=== PATIENT | female | born 1935 | race Caucasian/White ===

== ENCOUNTER → 2016-09-18 | Outpatient (CLI) | payer MEDICARE | LOC: GT 08:00 | PROVIDERS: ATTEND Family Medicine | DX: I50.9 Heart failure, unspecified (principal); I10 Essential (primary) hypertension; I25.9 Chronic ischemic heart disease, unspecified; Z79.899 Other long term (current) drug therapy ==

== ENCOUNTER → 2016-10-23 | Outpatient (CLI) | payer MEDICARE | END | disposition home or self-care (01) | LOC: GT 08:07 | PROVIDERS: ATTEND Family Medicine | DX: I50.9 Heart failure, unspecified (principal); I10 Essential (primary) hypertension; I25.9 Chronic ischemic heart disease, unspecified ==

== ENCOUNTER → 2016-10-30 | Outpatient (CLI) | payer MEDICARE | LOC: GT 08:19 | PROVIDERS: ATTEND Family Medicine | DX: I50.9 Heart failure, unspecified (principal); I10 Essential (primary) hypertension; I25.9 Chronic ischemic heart disease, unspecified; E11.8 Type 2 diabetes mellitus with unspecified complications ==

== ENCOUNTER → 2016-11-20 | Outpatient (CLI) | payer MEDICARE | END | disposition home or self-care (01) | LOC: GT 07:37 | PROVIDERS: ATTEND Family Medicine | DX: I50.9 Heart failure, unspecified (principal) ==

== ENCOUNTER → 2017-01-01 | Outpatient (CLI) | payer MEDICARE | LOC: GT 07:48 | PROVIDERS: ATTEND Family Medicine | DX: E11.8 Type 2 diabetes mellitus with unspecified complications (principal); I25.9 Chronic ischemic heart disease, unspecified; E63.9 Nutritional deficiency, unspecified; I50.9 Heart failure, unspecified; R27.8 Other lack of coordination ==

== ENCOUNTER → 2017-01-09 | Outpatient (CLI) | payer MEDICARE | LOC: GT 09:44 | PROVIDERS: ATTEND Family Medicine | DX: A49.02 Methicillin resistant Staphylococcus aureus infection, unspecified site (principal) ==

== ENCOUNTER → 2017-01-22 | Outpatient (CLI) | payer MEDICARE | END | disposition home or self-care (01) | LOC: GT 08:44 | PROVIDERS: ATTEND Family Medicine | DX: I25.9 Chronic ischemic heart disease, unspecified (principal); I50.9 Heart failure, unspecified | CPT/HCPCS: 36415; 80162; P9603 ==

== ENCOUNTER → 2017-01-24 | Outpatient (CLI) | payer MEDICARE | END | disposition home or self-care (01) | LOC: GT 10:22 | PROVIDERS: ATTEND Family Medicine | DX: N39.0 Urinary tract infection, site not specified (principal) ==

== ENCOUNTER → 2017-03-10 | Outpatient (CLI) | payer MEDICARE | END | disposition home or self-care (01) | LOC: GT 06:16 | PROVIDERS: ATTEND Family Medicine | DX: I50.9 Heart failure, unspecified (principal) ==

== ENCOUNTER → 2017-03-26 | Outpatient (CLI) | payer MEDICARE | LOC: GT 06:21 | PROVIDERS: ATTEND Family Medicine | DX: I25.9 Chronic ischemic heart disease, unspecified (principal); I10 Essential (primary) hypertension; I50.9 Heart failure, unspecified ==

== ENCOUNTER → 2017-04-23 | Outpatient (CLI) | payer MEDICARE | END | disposition home or self-care (01) | LOC: GT 07:35 | PROVIDERS: ATTEND Family Medicine | DX: I25.9 Chronic ischemic heart disease, unspecified (principal); I11.0 Hypertensive heart disease with heart failure; I50.9 Heart failure, unspecified ==

== ENCOUNTER → 2017-05-21 | Outpatient (CLI) | payer MEDICARE | LOC: GT 05:37 | PROVIDERS: ATTEND Family Medicine | DX: I25.9 Chronic ischemic heart disease, unspecified (principal); I50.9 Heart failure, unspecified ==

== ENCOUNTER → 2017-06-27 | Outpatient (CLI) | payer MEDICARE | LOC: GT 06:36 | PROVIDERS: ATTEND Family Medicine | DX: I50.9 Heart failure, unspecified (principal); I25.9 Chronic ischemic heart disease, unspecified ==

== ENCOUNTER → 2017-07-02 | Outpatient (CLI) | payer MEDICARE | END | disposition home or self-care (01) | LOC: GT 07:07 | PROVIDERS: ATTEND Family Medicine | DX: I50.9 Heart failure, unspecified (principal); E11.8 Type 2 diabetes mellitus with unspecified complications; I25.9 Chronic ischemic heart disease, unspecified; I10 Essential (primary) hypertension; R27.8 Other lack of coordination ==

== ENCOUNTER → 2017-07-10 | Outpatient (CLI) | payer MEDICARE | END | disposition home or self-care (01) | LOC: GT 14:59 | PROVIDERS: ATTEND Family Medicine | DX: L02.32 Furuncle of buttock (principal) ==

== ENCOUNTER 2017-07-17 16:25 | Emergency (ER) | payer MEDICARE ==
[2017-07-17 17:33] VITALS: BP 136/57; O2SAT 95
--- NOTE | 2017-07-17 17:40 | ED.PDOC ---
History of Present Illness - General Chief Complaint: Skin/Abrasion/Tear Stated Complaint: abscess Time Seen by Provider: 07/17/17 17:39 Source: patient Exam Limitations: clinical condition - dementia - History of Present Illness Initial Comments: Disha Cordero 82 y/o female seen ER today with drainage on her right buttocks which according to patient had it for 2 years No fever,no chills. Timing/Duration: changing over time, other - see hpi Severity: moderate Location: extremities - right buttocks Improving Factors: nothing Worsening Factors: nothing Associated Symptoms: other - drainage Allergies/Adverse Reactions: Allergies Levofloxacin [From Levaquin] Allergy (Verified 07/17/17 17:04) Sulfa Antibiotics Allergy (Verified 07/17/17 17:04) Home Medications: Ambulatory Orders Acetaminophen [Tylenol] 1 - 2 each PO Q6HRS PRN 05/02/16 Ascorbic Acid [Vitamin C] 500 mg PO BID@0900,1700 05/02/16 Aspirin [Aspirin Childrens] 81 mg PO DAILY@0900 05/02/16 Atorvastatin Calcium [Lipitor] 40 mg PO BEDTIME 05/02/16 Benzonatate 200 mg PO Q6HR PRN 05/02/16 Cranberry (Vaccinium Macrocarp [Cranberry] 450 mg PO TID@0900,1300,1999 Diazepam 2 mg PO BID PRN 05/02/16 Dicyclomine HCl 10 mg PO TID@0900,1300,1700 05/02/16 Furosemide [Lasix] 20 mg PO BID@0900,1200 05/02/16 Loratadine [Claritin] 10 mg PO DAILY PRN 05/02/16 Losartan Potassium 50 mg PO DAILY@0900 05/02/16 Metformin HCl [Metformin HCl ER] 500 mg PO DAILY@0730 05/02/16 Metoprolol Succinate [Metoprolol Succinate ER] 25 mg PO DAILY@0900 05/02/16 Montelukast [Singulair] 10 mg PO DAILY@209905/02/16 Ondansetron [Zofran Odt] 8 mg PO Q6H PRN 05/02/16 Potassium Chloride [Micro-K] 10 meq PO BID@0900,1700 05/02/16 Ranitidine HCl 150 mg PO DAILY@209905/02/16 Temazepam [Restoril] 15 mg PO BEDTIME PRN 05/02/16 Dextrose 50% 25Gm/50Ml Syr [D50 (25gm Syringe)] 25 gm IV PRN PRN #0 syg Digoxin [Lanoxin Tab] 0.125 mg PO DAILY@1200 #0 tab 05/18/16 Glucagon Inj 1 mg SUBCU PRN PRN #0 vial 05/18/16 HYDROcodone 5MG/APAP 325MG [[place] 5/325] 1 - 2 ea PO Q4H PRN #0 tab 05/18/16 Ibuprofen [Motrin] 400 mg PO Q6H PRN #0 tab 05/18/16 Insulin Detemir [Levemir Pen] 20 units SUBCU DAILY #0 pen 05/18/16 Insulin Lispro [Humalog] 0 u SUBCU ACHS #0 pen 05/18/16 Magnesium Hydroxide [Milk Of Magnesia] 30 ml PO BEDTIME PRN #0 ud 05/18/16 Pantoprazole Tablet [Protonix] 40 mg PO ACBK #0 tab 05/18/16 Amoxicillin [Amoxil] 1,000 mg PO BID #40 cap 07/17/17 Review of Systems - Review of Systems Constitutional: States: no symptoms reported EENTM: States: no symptoms reported Respiratory: States: no symptoms reported Cardiology: States: no symptoms reported Genitourinary: States: no symptoms reported Musculoskeletal: States: no symptoms reported Skin: States: see HPI All other Systems: Reviewed and Negative, No Change from Baseline Past Medical History (General) - Patient Medical History Hx Seizures: No Hx Stroke: No Hx Asthma: No Hx of COPD: No Hx Congestive Heart Failure: No Hx Pacemaker: No Hx Hypertension: Yes Hx Diabetes: Yes Hx Gastroesophageal Reflux: Yes Hx MRSA: Yes MRSA Source:: Blood Surgical History: other - hysterectomy,left AKA - Vaccination History Hx Influenza Vaccination: Yes Hx Pneumococcal Vaccination: No - Social History Hx Tobacco Use: No Hx Alcohol Use: No Hx Substance Use: No Hx Physical Abuse: No Hx Emotional Abuse: No - Female History Patient is a Female of Child Bearing Age (10 -59 yrs old): No Family Medical History - Family History Mother Family History: Unknown Living Status: Unknown Physical Exam - Physical Exam General Appearance: Alert, Comfortable, No apparent distress Eyes, Ears, Nose, Throat Exam: normal ENT inspection Neck: non-tender, supple, normal inspection Cardiovascular/Chest: normal peripheral pulses, regular rate, rhythm, systolic murmur - Grade 3/6 systolic murmur Respiratory: chest non-tender, lungs clear, normal breath sounds Gastrointestinal/Abdominal: normal bowel sounds, non tender, soft Back Exam: no CVA tenderness Extremity: other - LEFT AKA Neurologic: alert Skin Exam: warm/dry, normal color Skin Problem Location: other - right buttocks Skin Character: drainage, thickening Progress - Progress Progress: 07/17/17 17:58 Last Vital Signs Temp Pulse 60 07/17/17 16:55 Resp 20 07/17/17 16:55 BP 136/57 07/17/17 16:55 Pulse Ox 95 07/17/17 16:55 Departure - Departure Clinical Impression: Pilonidal sinus Time of Disposition: 17:59 Disposition: Discharge to SNF Departure Forms: ED Discharge - Pt. Copy, Patient Portal Self Enrollment Instructions: Pilonidal Cyst, DI for Pilonidal Cyst Removal Referrals: YANN PARK [Primary Care Provider] - 1-2 Weeks Prescriptions: Amoxicillin [Amoxil] 1,000 mg PO BID #40 cap Home Medications: Ambulatory Orders Acetaminophen [Tylenol] 1 - 2 each PO Q6HRS PRN 05/02/16 Ascorbic Acid [Vitamin C] 500 mg PO BID@0900,1700 05/02/16 Aspirin [Aspirin Childrens] 81 mg PO DAILY@0900 05/02/16 Atorvastatin Calcium [Lipitor] 40 mg PO BEDTIME 05/02/16 Benzonatate 200 mg PO Q6HR PRN 05/02/16 Cranberry (Vaccinium Macrocarp [Cranberry] 450 mg PO TID@0900,1300,2000 Diazepam 2 mg PO BID PRN 05/02/16 Dicyclomine HCl 10 mg PO TID@0900,1300,1700 05/02/16 Furosemide [Lasix] 20 mg PO BID@0900,1200 05/02/16 Loratadine [Claritin] 10 mg PO DAILY PRN 05/02/16 Losartan Potassium 50 mg PO DAILY@0900 05/02/16 Metformin HCl [Metformin HCl ER] 500 mg PO DAILY@0730 05/02/16 Metoprolol Succinate [Metoprolol Succinate ER] 25 mg PO DAILY@0900 05/02/16 Montelukast [Singulair] 10 mg PO DAILY@2100 05/02/16 Ondansetron [Zofran Odt] 8 mg PO Q6H PRN 05/02/16 Potassium Chloride [Micro-K] 10 meq PO BID@0900,1700 05/02/16 Ranitidine HCl 150 mg PO DAILY@2100 05/02/16 Temazepam [Restoril] 15 mg PO BEDTIME PRN 05/02/16 Dextrose 50% 25Gm/50Ml Syr [D50 (25gm Syringe)] 25 gm IV PRN PRN #0 syg Digoxin [Lanoxin Tab] 0.125 mg PO DAILY@1200 #0 tab 05/18/16 Glucagon Inj 1 mg SUBCU PRN PRN #0 vial 05/18/16 HYDROcodone 5MG/APAP 325MG [[place] 5/325] 1 - 2 ea PO Q4H PRN #0 tab 05/18/16 Ibuprofen [Motrin] 400 mg PO Q6H PRN #0 tab 05/18/16 Insulin Detemir [Levemir Pen] 20 units SUBCU DAILY #0 pen 05/18/16 Insulin Lispro [Humalog] 0 u SUBCU ACHS #0 pen 05/18/16 Magnesium Hydroxide [Milk Of Magnesia] 30 ml PO BEDTIME PRN #0 ud 05/18/16 Pantoprazole Tablet [Protonix] 40 mg PO ACBK #0 tab 05/18/16 Amoxicillin [Amoxil] 1,000 mg PO BID #40 cap 07/17/17 Additional Instructions: NEED TO FOLLOW UP WITH DR. KOROMA or SURGEON OF CHOICE FOR evaluation and management of draining pilonidal sinus;[facility]
== END 2017-07-17 19:26 ==
LOC: ER 16:25
DX: L05.92 Pilonidal sinus without abscess (principal); E11.9 Type 2 diabetes mellitus without complications; I10 Essential (primary) hypertension; K21.9 Gastro-esophageal reflux disease without esophagitis; Z79.4 Long term (current) use of insulin; Z79.899 Other long term (current) drug therapy; Z88.2 Allergy status to sulfonamides; Z88.3 Allergy status to other anti-infective agents

== ENCOUNTER → 2017-07-30 | Outpatient (CLI) | payer MEDICARE | END | disposition home or self-care (01) | LOC: GT 07:09 | PROVIDERS: ATTEND Family Medicine | DX: I25.9 Chronic ischemic heart disease, unspecified (principal); I50.9 Heart failure, unspecified | CPT/HCPCS: 36415; 80162; 85025; P9603 ==

== ENCOUNTER 2017-07-31 10:11 | Emergency (ER) | payer MEDICARE ==
[2017-07-31 10:34] VITALS: BP 120/55; TEMP 98.7; O2SAT 100
--- NOTE | 2017-07-31 10:41 | ED.PDOC ---
History of Present Illness - General Chief Complaint: Skin/Abrasion/Tear Stated Complaint: abscess to buttock Time Seen by Provider: 07/31/17 10:36 Source: family Exam Limitations: no limitations - History of Present Illness Initial Comments: Disha Cordero 82 y/o female brought by family to ER to be checked by Dr. Aragon surgeon for her long standing non healing pilonidal sinus drainage,had multiple treatment with antibiotics and local drainage done . Timing/Duration: other - 2 years Severity: moderate Location: extremities - buttocks Improving Factors: cold therapy Worsening Factors: nothing Associated Symptoms: denies symptoms Allergies/Adverse Reactions: Allergies Levofloxacin [From Levaquin] Allergy (Verified 07/17/17 17:04) Sulfa Antibiotics Allergy (Verified 07/17/17 17:04) Home Medications: Ambulatory Orders Acetaminophen [Tylenol] 1 - 2 each PO Q6HRS PRN 05/02/16 Ascorbic Acid [Vitamin C] 500 mg PO BID@0900,1700 05/02/16 Aspirin [Aspirin Childrens] 81 mg PO DAILY@0900 05/02/16 Atorvastatin Calcium [Lipitor] 40 mg PO BEDTIME 05/02/16 Benzonatate 200 mg PO Q6HR PRN 05/02/16 Cranberry (Vaccinium Macrocarp [Cranberry] 450 mg PO TID@0900,1300,1999 Diazepam 2 mg PO BID PRN 05/02/16 Dicyclomine HCl 10 mg PO TID@0900,1300,1700 05/02/16 Furosemide [Lasix] 20 mg PO BID@0900,1200 05/02/16 Loratadine [Claritin] 10 mg PO DAILY PRN 05/02/16 Losartan Potassium 50 mg PO DAILY@0900 05/02/16 Metformin HCl [Metformin HCl ER] 500 mg PO DAILY@0730 05/02/16 Metoprolol Succinate [Metoprolol Succinate ER] 25 mg PO DAILY@0900 05/02/16 Montelukast [Singulair] 10 mg PO DAILY@209905/02/16 Ondansetron [Zofran Odt] 8 mg PO Q6H PRN 05/02/16 Potassium Chloride [Micro-K] 10 meq PO BID@0900,1700 05/02/16 Ranitidine HCl 150 mg PO DAILY@209905/02/16 Temazepam [Restoril] 15 mg PO BEDTIME PRN 05/02/16 Dextrose 50% 25Gm/50Ml Syr [D50 (25gm Syringe)] 25 gm IV PRN PRN #0 syg Digoxin [Lanoxin Tab] 0.125 mg PO DAILY@1200 #0 tab 05/18/16 Glucagon Inj 1 mg SUBCU PRN PRN #0 vial 05/18/16 HYDROcodone 5MG/APAP 325MG [[facility] 5/325] 1 - 2 ea PO Q4H PRN #0 tab 05/18/16 Ibuprofen [Motrin] 400 mg PO Q6H PRN #0 tab 05/18/16 Insulin Detemir [Levemir Pen] 20 units SUBCU DAILY #0 pen 05/18/16 Insulin Lispro [Humalog] 0 u SUBCU ACHS #0 pen 05/18/16 Magnesium Hydroxide [Milk Of Magnesia] 30 ml PO BEDTIME PRN #0 ud 05/18/16 Pantoprazole Tablet [Protonix] 40 mg PO ACBK #0 tab 05/18/16 Amoxicillin [Amoxil] 1,000 mg PO BID #40 cap 07/17/17 Review of Systems - Review of Systems Constitutional: States: no symptoms reported EENTM: States: no symptoms reported Respiratory: States: no symptoms reported Cardiology: States: no symptoms reported Skin: States: see HPI All other Systems: Reviewed and Negative, No Change from Baseline Past Medical History (General) - Patient Medical History Hx Seizures: No Hx Stroke: No Hx Asthma: No Hx of COPD: No Hx Congestive Heart Failure: No Hx Pacemaker: No Hx Hypertension: Yes Hx Diabetes: Yes Hx Gastroesophageal Reflux: Yes Hx MRSA: Yes MRSA Source:: Blood Surgical History: appendectomy, cholecystectomy, other - left AKA - Vaccination History Hx Influenza Vaccination: Yes Hx Pneumococcal Vaccination: No - Social History Hx Tobacco Use: No Hx Alcohol Use: No Hx Substance Use: No Hx Physical Abuse: No Hx Emotional Abuse: No Family Medical History - Family History Mother Family History: Unknown Living Status: Unknown Physical Exam - Physical Exam General Appearance: Alert, No apparent distress Eyes, Ears, Nose, Throat Exam: normal ENT inspection Neck: full range of motion, supple Cardiovascular/Chest: normal peripheral pulses, regular rate, rhythm, no murmur Respiratory: chest non-tender, lungs clear Gastrointestinal/Abdominal: normal bowel sounds, non tender, soft Back Exam: normal inspection, no CVA tenderness Extremity: non-tender, no calf tenderness, other - left AKA Neurologic: alert Skin Exam: warm/dry, normal color Skin Problem Location: other - buttocks darining pilonidal sinus Skin Character: thickening, other - chronic induration Lymphatic: no adenopathy Progress - Progress Progress: 07/31/17 10:44 Last Vital Signs Temp 98.7 F 07/31/17 10:30 Pulse 67 07/31/17 10:30 Resp 20 07/31/17 10:30 BP 120/55 07/31/17 10:30 Pulse Ox 100 07/31/17 10:30 07/31/17 12:[address] Aragon surgeon-please refer to his notes Departure - Departure Clinical Impression: Abscess of sacrum Time of Disposition: 12:24 Disposition: Discharge to SNF Condition: Fair Departure Forms: ED Discharge - Pt. Copy, Patient Portal Self Enrollment Instructions: DI for Abrasion Referrals: Blane Aragon MD [Active Staff] - 2 weeks (will contact fl for fu appt) YANN PARK [Primary Care Provider] - 1-2 Weeks Home Medications: Ambulatory Orders Acetaminophen [Tylenol] 1 - 2 each PO Q6HRS PRN 05/02/16 Ascorbic Acid [Vitamin C] 500 mg PO BID@0900,1700 05/02/16 Aspirin [Aspirin Childrens] 81 mg PO DAILY@0900 05/02/16 Atorvastatin Calcium [Lipitor] 40 mg PO BEDTIME 05/02/16 Benzonatate 200 mg PO Q6HR PRN 05/02/16 Cranberry (Vaccinium Macrocarp [Cranberry] 450 mg PO TID@0900,1300,2000 Diazepam 2 mg PO BID PRN 05/02/16 Dicyclomine HCl 10 mg PO TID@0900,1300,1700 05/02/16 Furosemide [Lasix] 20 mg PO BID@0900,1200 05/02/16 Loratadine [Claritin] 10 mg PO DAILY PRN 05/02/16 Losartan Potassium 50 mg PO DAILY@0900 05/02/16 Metformin HCl [Metformin HCl ER] 500 mg PO DAILY@0730 05/02/16 Metoprolol Succinate [Metoprolol Succinate ER] 25 mg PO DAILY@0900 05/02/16 Montelukast [Singulair] 10 mg PO DAILY@2100 05/02/16 Ondansetron [Zofran Odt] 8 mg PO Q6H PRN 05/02/16 Potassium Chloride [Micro-K] 10 meq PO BID@0900,1700 05/02/16 Ranitidine HCl 150 mg PO DAILY@2100 05/02/16 Temazepam [Restoril] 15 mg PO BEDTIME PRN 05/02/16 Dextrose 50% 25Gm/50Ml Syr [D50 (25gm Syringe)] 25 gm IV PRN PRN #0 syg Digoxin [Lanoxin Tab] 0.125 mg PO DAILY@1200 #0 tab 05/18/16 Glucagon Inj 1 mg SUBCU PRN PRN #0 vial 05/18/16 HYDROcodone 5MG/APAP 325MG [[facility] 5/325] 1 - 2 ea PO Q4H PRN #0 tab 05/18/16 Ibuprofen [Motrin] 400 mg PO Q6H PRN #0 tab 05/18/16 Insulin Detemir [Levemir Pen] 20 units SUBCU DAILY #0 pen 05/18/16 Insulin Lispro [Humalog] 0 u SUBCU ACHS #0 pen 05/18/16 Magnesium Hydroxide [Milk Of Magnesia] 30 ml PO BEDTIME PRN #0 ud 05/18/16 Pantoprazole Tablet [Protonix] 40 mg PO ACBK #0 tab 05/18/16 Amoxicillin [Amoxil] 1,000 mg PO BID #40 cap 07/17/17 Additional Instructions: To follow up with Dr. Aragon
[2017-07-31] MEDS ORDERED: POVIDONE IODINE 10 % 15 ML UD TOP ONE (11:40)
[2017-07-31] MEDS ORDERED: LIDOCAINE 1% 10 ML VIAL INJ ONE (11:40)
--- NOTE | 2017-07-31 13:07 | CONS ---
DATE OF CONSULTATION: 07/31/17 HISTORY OF PRESENT ILLNESS: The patient is an 82-year-old [facility] patient who I have known in the distant past for an amputation. Today, she is complaining of a draining lesion on her buttocks for sometime. She denies fever or chills. She has been on antibiotics, but at this time I am uncertain of the nature of the antibiotic. She complains of pain and draining. She denies previous surgery or abscess in this area. The patient is seen today with her granddaughter. PAST MEDICAL HISTORY: Her past medical history is quite significant, but is not significant in reference to this problem. ALLERGIES: POSSIBLY ALLERGIC TO PENICILLIN, BUT SHE IS SPECIFICALLY NOT ALLERGIC TO BETADINE OR LIDOCAINE. FAMILY HISTORY: Noncontributory. PHYSICAL EXAMINATION: GENERAL: The patient is awake, alert, cooperative, in no minimal distress. VITAL SIGNS: The patient is currently afebrile, normotensive. Over her buttocks to the left side, there is a draining sinus with seropurulent drainage. There was mild surrounding erythema, no significant warmth and no foul odor. ASSESSMENT: 1. Either a pressure abscess or pilonidal cyst, uncertain in this position. PLAN: Under local anesthesia, we will open the wound to obtain a better culture and then pack it. We will then give further recommendations afterwards and orders to the [facility]. #[id number] [facility]
--- NOTE | 2017-07-31 13:13 | OP ---
DATE OF PROCEDURE: 07/31/17 PREOPERATIVE DIAGNOSIS: 1. Abscess on the sacral area - pilonidal cyst abscess versus pressure wound, status post spontaneous drainage. POSTOPERATIVE DIAGNOSIS: 1. Abscess on the sacral area - pilonidal cyst abscess versus pressure wound, status post spontaneous drainage. PROCEDURE: 1. Incision and drainage of abscess on the sacrum. SURGEON: lBane Aragon MD. SHOP DIRECTOR: None. ANESTHESIA: Local infiltration of 1% lidocaine. INDICATION: The patient is an 82-year-old female with a draining sinus that is quite tender on her backside. It has been present for some time. She has been oral antibiotic by her primary care physician and is afebrile at the time of this procedure. FINDINGS: The abscess cavity extended approximately 5 cm in superior, inferior , cephalad and caudad directions, yet did not involve bone. There was a minimal amount of purulent drainage. There was no foul odor. PROCEDURE: After the patient was placed in right side up lateral decubitus position, the backside was painted with Betadine. Local infiltration of anesthesia was obtained with 1% lidocaine. Using a 15 blade, the incision was extended superior. A culture was then taken inside and then it was examined and noted to extent inferiorly, so local infiltration of anesthesia was obtained in that direction and the incision was extended in that direction for a total of 3.5 or so cm for the total incision. It was then irrigated with Betadine and saline, packed with sterile cotton gauze and sterile dressing was applied. Estimated blood loss was approximately 25 mL. The patient tolerated the procedure well. She will be discharged from the Emergency Room back to the [facility] and we will consider changing antibiotic therapy based on culture results and followup with her at some time. #[id number] [facility]
== END 2017-07-31 12:17 ==
LOC: ER 10:11
DX: L02.31 Cutaneous abscess of buttock (principal); I10 Essential (primary) hypertension; E11.9 Type 2 diabetes mellitus without complications; Z89.612 Acquired absence of left leg above knee; Z79.899 Other long term (current) drug therapy

== ENCOUNTER → 2017-08-27 | Outpatient (CLI) | payer MEDICARE | LOC: GT 06:28 | PROVIDERS: ATTEND Family Medicine | DX: I50.9 Heart failure, unspecified (principal); I10 Essential (primary) hypertension; I25.9 Chronic ischemic heart disease, unspecified | CPT/HCPCS: 36415; 80162; P9603 ==

== ENCOUNTER → 2017-09-02 | Outpatient (CLI) | payer MEDICARE, MEDICAID | LOC: GT 10:48 | PROVIDERS: ATTEND Family Medicine | DX: N39.0 Urinary tract infection, site not specified (principal) ==

== ENCOUNTER → 2017-09-17 | Outpatient (CLI) | payer MEDICARE, MEDICAID | LOC: GT 07:42 | PROVIDERS: ATTEND Family Medicine | DX: E78.5 Hyperlipidemia, unspecified (principal); E63.9 Nutritional deficiency, unspecified; Z51.81 Encounter for therapeutic drug level monitoring | CPT/HCPCS: 36415; 85025; P9603 ==

== ENCOUNTER → 2017-09-24 | Outpatient (CLI) | payer MEDICARE, MEDICAID | LOC: GT 07:49 | PROVIDERS: ATTEND Family Medicine | DX: E11.8 Type 2 diabetes mellitus with unspecified complications (principal); I50.9 Heart failure, unspecified; I10 Essential (primary) hypertension; I25.9 Chronic ischemic heart disease, unspecified; E78.5 Hyperlipidemia, unspecified; E63.9 Nutritional deficiency, unspecified; E11.9 Type 2 diabetes mellitus without complications ==

== ENCOUNTER → 2017-10-22 | Outpatient (CLI) | payer MEDICARE, MEDICAID | END | disposition home or self-care (01) | LOC: GT 06:07 | PROVIDERS: ATTEND Family Medicine | DX: I50.9 Heart failure, unspecified (principal); E11.8 Type 2 diabetes mellitus with unspecified complications; I11.0 Hypertensive heart disease with heart failure; R78.5 Finding of other psychotropic drug in blood; I25.9 Chronic ischemic heart disease, unspecified; E63.9 Nutritional deficiency, unspecified; E11.9 Type 2 diabetes mellitus without complications | CPT/HCPCS: 36415; 80162; P9603 ==

== ENCOUNTER → 2017-10-29 | Outpatient (CLI) | payer MEDICARE, MEDICAID | LOC: GT 07:39 | PROVIDERS: ATTEND Family Medicine | DX: E11.8 Type 2 diabetes mellitus with unspecified complications (principal); I10 Essential (primary) hypertension; I50.9 Heart failure, unspecified; I25.9 Chronic ischemic heart disease, unspecified; E78.5 Hyperlipidemia, unspecified; E63.9 Nutritional deficiency, unspecified; N39.0 Urinary tract infection, site not specified ==

== ENCOUNTER → 2017-11-07 | Outpatient (CLI) | payer MEDICARE, MEDICAID | LOC: GT 07:20 | PROVIDERS: ATTEND Family Medicine | DX: I25.9 Chronic ischemic heart disease, unspecified (principal); I50.9 Heart failure, unspecified; Z79.899 Other long term (current) drug therapy | CPT/HCPCS: 36415; 80162; P9603 ==

== ENCOUNTER → 2017-11-19 | Outpatient (CLI) | payer MEDICARE, MEDICAID | LOC: GT 06:40 | PROVIDERS: ATTEND Family Medicine | DX: N39.0 Urinary tract infection, site not specified (principal) ==

== ENCOUNTER → 2017-11-21 | Outpatient (CLI) | payer MEDICARE, MEDICAID | LOC: GT 07:25 | PROVIDERS: ATTEND Family Medicine | DX: I50.9 Heart failure, unspecified (principal); E63.9 Nutritional deficiency, unspecified; E78.5 Hyperlipidemia, unspecified; I25.9 Chronic ischemic heart disease, unspecified; I10 Essential (primary) hypertension; E11.8 Type 2 diabetes mellitus with unspecified complications ==

== ENCOUNTER → 2018-07-30 | Outpatient (CLI) | payer OTHER | LOC: GT 06:15 | PROVIDERS: ATTEND Family Medicine | DX: N39.0 Urinary tract infection, site not specified (principal) ==

== ENCOUNTER → 2018-09-17 | Outpatient (CLI) | payer MEDICARE | LOC: GT 21:11 | PROVIDERS: ATTEND Family Medicine | DX: N39.0 Urinary tract infection, site not specified (principal) ==

== ENCOUNTER → 2018-10-12 | Outpatient (CLI) | payer MEDICARE, MEDICAID | LOC: GOCC 14:29 | PROVIDERS: ATTEND Family Medicine | DX: N39.0 Urinary tract infection, site not specified (principal) ==

== ENCOUNTER 2018-10-26 17:24 | Inpatient (IN) | payer MEDICARE, MEDICAID ==
[2018-10-26] MEDS ORDERED: SODIUM CHLORIDE 0.9% 500ML 500 ML IVS ONE (18:15)
--- NOTE | 2018-10-26 18:21 | ED.PDOC ---
History of Present Illness - General Chief Complaint: Problem Stated Complaint: intractable uti Time Seen by Provider: 10/26/18 17:52 Source: other - Hospice nurse Exam Limitations: clinical condition - Dementia - History of Present Illness Initial Comments: Pt has been treated for persistant UTI without improvement. Latest sensitivity shows Gentamicin and sulfa should work, but pt is allergic to Sulfa. Pt is a Hospice client, but their doctor thought admission with IV gentamicin would get the UTI under control. Pt has been more confused and agitated since the infecti on was found Timing/Duration: constant Quality: moderate Onset Location: unknown Radiation: none Activites at Onset: none Prior abdominal problems: none Sexual intercourse history: not active Improving Factors: nothing Worsening Factors: nothing Associated Symptoms: denies symptoms Allergies/Adverse Reactions: Allergies Levofloxacin [From Levaquin] Allergy (Verified 07/17/17 17:04) Sulfa Antibiotics Allergy (Verified 07/17/17 17:04) Home Medications: Ambulatory Orders Ascorbic Acid [Vitamin C] 500 mg PO BID@0900,1700 05/02/16 Atorvastatin Calcium [Lipitor] 40 mg PO BEDTIME 05/02/16 Benzonatate 200 mg PO Q6HR PRN 05/02/16 Cranberry (Vaccinium Macrocarp [Cranberry] 450 mg PO TID@0900,1300,2000 05/02/16 Dicyclomine HCl 10 mg PO TID@0900,1300,1700 05/02/16 Furosemide [Lasix] 20 mg PO BID@0900,1200 05/02/16 Losartan Potassium 50 mg PO DAILY@0900 05/02/16 Metformin HCl [Metformin HCl ER] 500 mg PO DAILY@0730 05/02/16 Metoprolol Succinate [Metoprolol Succinate ER] 25 mg PO DAILY@0900 05/02/16 Montelukast [Singulair] 10 mg PO DAILY@2100 05/02/16 Potassium Chloride [Micro-K] 10 meq PO BID@0900,1700 05/02/16 Digoxin [Lanoxin Tab] 0.125 mg PO DAILY@1200 #0 tab 05/18/16 Ibuprofen [Motrin] 400 mg PO Q6H PRN #0 tab 05/18/16 Magnesium Hydroxide [Milk Of Magnesia] 30 ml PO BEDTIME PRN #0 ud 05/18/16 Buspirone HCl 15 mg PO BID 10/26/18 HYDROcodone 10MG/APAP 325MG [[place] 10/325] 1 tab PO BID 10/26/18 LORazepam [Ativan] 1 mg PO TID 10/26/18 Megestrol Acetate (Appetite) [Megace Es] 400 mg PO DAILY 10/26/18 Nitrofurantoin Macrocrystal [Nitrofurantoin Macrocryst] 100 mg PO DAILY 10/26/18 Promethazine Tab [Phenergan Tablet] 25 mg PO Q6HR PRN 10/26/18 Review of Systems - Review of Systems Unable to Obtain Due To: dementia Past Medical History (General) - Patient Medical History Hx Seizures: No Hx Stroke: No Hx Asthma: No Hx of COPD: No Hx Congestive Heart Failure: No Hx Pacemaker: No Hx Hypertension: Yes Hx Diabetes: Yes Hx Gastroesophageal Reflux: Yes Hx MRSA: Yes MRSA Source:: Blood Surgical History: other - Vaccination History Hx Tetanus, Diphtheria Vaccination: No Hx Influenza Vaccination: Yes Hx Pneumococcal Vaccination: Yes - Social History Hx Tobacco Use: No Hx Alcohol Use: No Hx Substance Use: No Hx Physical Abuse: No Hx Emotional Abuse: No - Activities of Daily Living Shelter/Assisted Living (if applicable):: [facility] ([facility] applicable):: [facility] Family Medical History - Family History Mother Family History: Unknown Living Status: Unknown Physical Exam - Physical Exam General Appearance: Alert, Restless Eyes, Ears, Nose, Throat Exam: PERRL/EOMI, other - dry mucosa Cardiovascular/Respiratory: regular rate, rhythm, normal breath sounds, no respiratory distress Gastrointestinal/Abdominal: normal bowel sounds, non tender, soft Extremity: normal range of motion, non-tender, other - S/P BKA on L Neurologic: alert Skin Exam: normal color, warm/dry Departure - Departure Clinical Impression: Dehydration, Acute kidney injury Urinary tract infection Qualifiers: Urinary tract infection type: site unspecified Hematuria presence: without hematuria Qualified Code(s): N39.0 - Urinary tract infection, site not specified Disposition: Admit Patient Condition: Fair Departure Forms: ED Discharge - Pt. Copy, Patient Portal Self Enrollment Referrals: YANN PARK [Primary Care Provider] - 1-2 Weeks Home Medications: Ambulatory Orders Ascorbic Acid [Vitamin C] 500 mg PO BID@0900,1700 05/02/16 Atorvastatin Calcium [Lipitor] 40 mg PO BEDTIME 05/02/16 Benzonatate 200 mg PO Q6HR PRN 05/02/16 Cranberry (Vaccinium Macrocarp [Cranberry] 450 mg PO TID@0900,1300,2000 05/02/16 Dicyclomine HCl 10 mg PO TID@0900,1300,1700 05/02/16 Furosemide [Lasix] 20 mg PO BID@0900,1200 05/02/16 Losartan Potassium 50 mg PO DAILY@0900 05/02/16 Metformin HCl [Metformin HCl ER] 500 mg PO DAILY@0730 05/02/16 Metoprolol Succinate [Metoprolol Succinate ER] 25 mg PO DAILY@0900 05/02/16 Montelukast [Singulair] 10 mg PO DAILY@2100 05/02/16 Potassium Chloride [Micro-K] 10 meq PO BID@0900,1700 05/02/16 Digoxin [Lanoxin Tab] 0.125 mg PO DAILY@1200 #0 tab 05/18/16 Ibuprofen [Motrin] 400 mg PO Q6H PRN #0 tab 05/18/16 Magnesium Hydroxide [Milk Of Magnesia] 30 ml PO BEDTIME PRN #0 ud 05/18/16 Buspirone HCl 15 mg PO BID 10/26/18 HYDROcodone 10MG/APAP 325MG [[facility] 10/325] 1 tab PO BID 10/26/18 LORazepam [Ativan] 1 mg PO TID 10/26/18 Megestrol Acetate (Appetite) [Megace Es] 400 mg PO DAILY 10/26/18 Nitrofurantoin Macrocrystal [Nitrofurantoin Macrocryst] 100 mg PO DAILY 10/26/18 Promethazine Tab [Phenergan Tablet] 25 mg PO Q6HR PRN 10/26/18 Decision To Admit - Decistion To Admit Decision to Admit Reason: Admit from ER Decision to Admit Date: 10/26/18 Decision to Admit Time: 20:13
--- NOTE | 2018-10-26 21:29 | HP ---
SUPERVISING PHYSICIAN: Ben Sierra MD CHIEF COMPLAINT: Intractable urinary tract infection with multidrug resistant organism and multiple allergies. HISTORY OF PRESENT ILLNESS: Ms. Cordero is an 83-year-old, female patient who is on hospice care with [facility] for endstage dementia. Her primary care physician, Dr. Hall, has been treating her for a urinary tract infection that has not improved with outpatient management as a recent urine culture and sensitivity showed a multidrug resistant Morganella morganii with the patient being allergic to Bactrim and levofloxacin with it being sensitive to gentamicin as the only antibiotic she is not allergic as well Zoysn. She was brought to the Emergency Department at the request of Dr. Linares in efforts to provide further treatment of her urinary tract infection given the only means of treatment is either IM injections or parenteral antibiotic with gentamicin. The patient has become more confused and agitated since the urinary tract infection was found and has not responded to treatment. She is now going to be placed in acute care for initiation of fluids for dehydration as her laboratory studies showed creatinine elevated at 1.98 and her normal creatinine after review of medical records is around 0.8 to 1. She will be started on gentamicin per pharmacy protocol. She was admitted in stable condition. PAST MEDICAL HISTORY: 1. Endstage dementia on hospice care with [facility]. 2. Hypertension. 3. Anxiety disorder. 4. Chronic ischemic heart disease. 5. 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 6. Hyperlipidemia. 7. Chronic sinusitis. 8. Gastroesophageal reflux disease. 9. Irritable bowel syndrome. 10. Insomnia. PAST SURGICAL HISTORY: Limited due to the patient being unable to provide any significant history and family not present at time of interview, but listed on previous medical records shows: 1. Cholecystectomy. 2. Tonsillectomy and adenoidectomy. 3. Hysterectomy. 4. Left total knee arthroplasty. 5. Ykrop-[id number] amputation, left. HOME MEDICATIONS: Please refer to the list in the electronic medical record for nursing review of MAR from hospice. ALLERGIES: LEVOFLOXACIN, SULFA ANTIBIOTICS. FAMILY HISTORY: Unremarkable and noncontributory. SOCIAL HISTORY: She is currently on hospice care and resides at [facility]. 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 She denies ever smoking or drinking. REVIEW OF SYSTEMS: Unable to obtain due to the patient's state of dementia. PHYSICAL EXAMINATION: VITAL SIGNS: Temperature 98.2. Pulse 87. Blood pressure 116/75. Respirations 20. Oxygen saturation 99% on room air. GENERAL: The patient is resting comfortably, appears to be in no acute distress. She is a little bit restless. HEENT: Tympanic membranes clear bilaterally. Oropharynx is pink with dry mucous membranes without any lesions. NECK: Supple, nontender with full range of motion. No jugular venous distention noted. RESPIRATORY: Lungs clear to auscultation bilaterally without any rhonchi, wheezes, or rales. CARDIOVASCULAR: Regular rate and rhythm without any appreciable murmurs, gallops, or rubs. ABDOMEN: Soft, nontender. Positive bowel sounds. EXTREMITIES: Status post [id number] amputation on the left. No edema of other extremities. NEUROLOGIC: The patient is alert, but confused. SKIN: Warm, pink and dry with no lesions or rashes. ASSESSMENT: 1. Multidrug resistant urinary tract infection secondary to Morganella morganii and sensitive to Zosyn and gentamicin with the patient having allergy to levofloxacin and sulfa antibiotics. 2. Endstage dementia, currently on hospice care under [facility]. 3. Acute kidney injury, likely due to prerenal azotemia from dehydration. 4. Type 2 diabetes mellitus. 5. Hypertension. 6. Anxiety disorder. 7. History of chronic ischemic heart disease. 8. Hyperlipidemia. 9. History of chronic sinusitis. 10. Chronic gastroesophageal reflux disease without mention of esophagitis. 11. Irritable bowel syndrome. PLAN: The patient is going to be admitted to Acute Care for initiation of IV antibiotics to include gentamicin. Given that she could go home after a course of parenteral antibiotic on possibly IM gentamicin versus Zosyn and given her kidney function, at this point, I feel like she will have an easier time with gentamicin. We will also start her on some IV fluids in efforts to correct her renal dysfunction. She will be on DVT prophylaxis per protocol. She will be on insulin sliding scale per protocol. We will resume her home medications once those have been updated and verified. We will anticipate her length of stay to be at least 2 to 3 days. She will be on gentamicin per pharmacy protocol. Tonight I will start her on 60 mg IV q.8h. and address additional dosing in the morning based on her repeat kidney function on BMP. Once she has had at least 48 to 72 hours of initial treatment, hopefully she could be transitioned to outpatient IM treatment. Until that point, we will continue to monitor and treat as needed. [facility][id number] [facility]
[2018-10-26] MEDS ORDERED: SODIUM CHLORIDE 0.9% 100ML 100 ML IVPB ONE (22:38)
[2018-10-26] MEDS ORDERED: GENTAMICIN SULFATE INJ 80 MG/2 ML VIAL ONE (22:38)
[2018-10-26] MEDS ORDERED: SODIUM CHLORIDE 0.9% (FLUSH) 10 ML SYG IV PRN (22:47)
[2018-10-26] MEDS ORDERED: DEXTROSE 50% 25 GM/50 ML SYG IV PRN (22:47)
[2018-10-26] MEDS ORDERED: GLUCAGON INJ 1 MG VIAL SUBCU PRN (22:47)
[2018-10-26] MEDS ORDERED: MAGNESIUM HYDROXIDE 30 ML UD PO PRN (22:47)
[2018-10-26] MEDS ORDERED: ACETAMINOPHEN 325 MG TAB PO PRN (22:47)
[2018-10-26] MEDS ORDERED: ALUM & MAG HYDROX-SIMETHICONE 30 ML UD PO PRN (22:47)
[2018-10-26] MEDS: KCL 20MEQ/0.45% NS 1,000 ML IVS PRN (22:48)
[2018-10-26] MEDS: IV SET AND CAP CHANGE INJ INJ SCH (22:53)
[2018-10-26] MEDS ORDERED: SODIUM CHLORIDE 0.9% IVPB ONE (23:00)
[2018-10-26] MEDS ORDERED: GENTAMICIN SULFATE IVPB ONE (23:00)
[2018-10-26] MEDS ORDERED: BENZONATATE PERLES 100 MG CAP PO PRN (23:24)
[2018-10-26] MEDS ORDERED: PROMETHAZINE HCL 25 MG TAB PO PRN (23:24)
[2018-10-26] MEDS: LORazepam 1 MG TAB PO SCH (23:31)
[2018-10-26] MEDS: HYDROcodone 10MG/APAP 325MG 1 EA TAB PO SCH (23:31)
[2018-10-27] MEDS: INSULIN LISPRO 100 UNITS/ML PEN SUBCU SCH ×4 (07:22→20:54)
[2018-10-27] MEDS ORDERED: metFORMIN XR 500 MG TAB.ER.24 PO SCH (07:30)
[2018-10-27] MEDS ORDERED: DICYCLOMINE HCL 20 MG TAB ONE (08:40)
[2018-10-27] MEDS ORDERED: LOSARTAN POTASSIUM 25 MG TAB ONE (08:41)
[2018-10-27] MEDS ORDERED: busPIRone HCL 5 MG TAB ONE (08:41)
[2018-10-27] MEDS: DICYCLOMINE HCL 20 MG TAB PO SCH ×3 (09:10→17:40)
[2018-10-27] MEDS: LOSARTAN POTASSIUM 25 MG TAB PO SCH (09:10)
[2018-10-27] MEDS: busPIRone HCL 5 MG TAB PO SCH ×2 (09:10→20:46)
[2018-10-27] MEDS: LORazepam 1 MG TAB PO SCH ×3 (09:11→20:47)
[2018-10-27] MEDS: metFORMIN XR 500 MG TAB.ER.24 PO SCH ×2 (09:11→20:47)
[2018-10-27] MEDS: METOPROLOL SUCCINATE XL 25 MG TAB PO SCH (09:11)
[2018-10-27] MEDS: HYDROcodone 10MG/APAP 325MG 1 EA TAB PO SCH ×2 (09:12→20:46)
[2018-10-27] MEDS: MEGESTROL ACETATE SUSP 400 MG/10 ML UD PO SCH (09:18)
[2018-10-27] MEDS ORDERED: SODIUM CHLORIDE 0.9% IVPB SCH (10:00)
[2018-10-27] MEDS ORDERED: GENTAMICIN SULFATE IVPB SCH (10:00)
[2018-10-27] MEDS ORDERED: GENTAMICIN PER PHARMACY IVPB SCH (10:00)
[2018-10-27] MEDS ORDERED: GENTAMICIN SULFATE INJ 80 MG/2 ML VIAL ONE (10:26)
[2018-10-27] MEDS ORDERED: SODIUM CHLORIDE 0.9% 100ML 100 ML IVPB ONE (10:27)
[2018-10-27] MEDS ORDERED: DIGOXIN 0.125 MG TAB PO SCH (12:00)
[2018-10-27] MEDS: DIGOXIN 0.125 MG TAB PO SCH (12:22)
[2018-10-27] MEDS: KCL 20MEQ/0.45% NS 1,000 ML IVS PRN (13:51)
[2018-10-27] MEDS: ATORVASTATIN 20 MG TAB PO SCH (20:47)
[2018-10-27] MEDS: MONTELUKAST 10 MG TAB PO SCH (20:47)
--- NOTE | 2018-10-27 22:20 | PN ---
DATE: 10/27/18 SUPERVISING PHYSICIAN: Ben Sierra M.D. SUBJECTIVE: The patient is still fairly lethargic and confused. She is resting comfortably. She was started on Gentamicin last night and had good response to the fluids. OBJECTIVE: VITAL SIGNS: Temperature 98.2, pulse 87, blood pressure 116/75, respirations 20, satting 99% on room air. CHEST: Lungs are clear to auscultation bilaterally. HEART: Regular rate and rhythm. ABDOMEN: Soft, non- tender. Positive bowel sounds. EXTREMITIES: Left [id number]-[id number] amputation. All other extremities are without edema. NEUROLOGIC: She is confused, but pleasant. LABORATORY: Creatinine is down to 1.38, BUN 39. Electrolytes showing normal sodium and potassium chloride. Blood sugars range between 132 to 189, calcium 8.2. MICROBIOLOGY: Urine culture prior to admission again showed Morganella that was sensitive to Gentamicin and resistant to all other oral antibiotics other than the ones that she is allergic to which includes Bactrim and Levaquin. ASSESSMENT: 1. Multidrug resistant urinary tract infection secondary to Morganella morganii and sensitive to Zosyn and gentamicin with the patient having allergy to levofloxacin and sulfa antibiotics. 2. Endstage dementia, currently on hospice care under [facility] 3. Acute kidney injury, likely due to prerenal azotemia from dehydration. 4. Type 2 diabetes mellitus. 5. Hypertension. 6. Anxiety disorder. 7. History of chronic ischemic heart disease. 8. Hyperlipidemia. 9. History of chronic sinusitis. 10. Chronic gastroesophageal reflux disease without mention of esophagitis. 11. Irritable bowel syndrome. PLAN: Will continue with IV coverage with Gentamicin as I think this is still more appropriate than Zosyn given her renal function and age and current urinary tract infection. She is tolerating current dosing which is by Pharmacy protocol. Will continue to follow labs as needed and at this point continue with IV fluids to help with some of the dehydration which shows to be improving slightly. Again will anticipate at least another 48 hours. Hopefully after that point she can transition to some IM dosage for outpatient management. Until then will continue to monitor and treat as needed. #[id number] [facility]
[2018-10-28] MEDS: KCL 20MEQ/0.45% NS 1,000 ML IVS PRN (01:40)
[2018-10-28] MEDS: INSULIN LISPRO 100 UNITS/ML PEN SUBCU SCH ×4 (07:32→21:01)
[2018-10-28] MEDS: busPIRone HCL 5 MG TAB PO SCH ×2 (09:45→20:36)
[2018-10-28] MEDS: METOPROLOL SUCCINATE XL 25 MG TAB PO SCH (09:45)
[2018-10-28] MEDS: DICYCLOMINE HCL 20 MG TAB PO SCH ×3 (09:46→17:24)
[2018-10-28] MEDS: metFORMIN XR 500 MG TAB.ER.24 PO SCH ×2 (09:46→20:37)
[2018-10-28] MEDS: LORazepam 1 MG TAB PO SCH ×3 (09:46→20:37)
[2018-10-28] MEDS: MEGESTROL ACETATE SUSP 400 MG/10 ML UD PO SCH (09:46)
[2018-10-28] MEDS: HYDROcodone 10MG/APAP 325MG 1 EA TAB PO SCH ×2 (09:48→20:36)
[2018-10-28] MEDS: LOSARTAN POTASSIUM 25 MG TAB PO SCH (09:48)
[2018-10-28] MEDS: MONTELUKAST 10 MG TAB PO SCH (20:37)
[2018-10-28] MEDS: ENOXAPARIN SODIUM 30 MG/0.3 ML SYG SUBCU SCH (20:37)
[2018-10-28] MEDS: ATORVASTATIN 20 MG TAB PO SCH (20:37)
--- NOTE | 2018-10-28 20:37 | PN ---
DATE: 10/28/18 SUPERVISING PHYSICIAN: Ben Sierra M.D. SUBJECTIVE: The patient is back to her baseline mental status. She is very verbal, confused but very pleasantly confused. OBJECTIVE: VITAL SIGNS: Temperature 98.6, pulse 81, blood pressure 138/84, respirations 20, satting 97% on room air. Weight is 55.3 kg. CHEST: Lungs are clear to auscultation. HEART: Regular rate and rhythm. ABDOMEN: Soft, non- tender. Positive bowel sounds. NEUROLOGIC: She is confused and back to her baseline level of dementia with no other neurological deficits noted. LABORATORY: Chemistry shows creatinine 1.28, BUN 30 with blood sugars between 98 and 175. She has had 1 Gentamicin level that was 13.3. MICROBIOLOGY: As noted on previous note. Urine culture prior to admission again showed Morganella that was sensitive to Gentamicin and resistant to all other oral antibiotics other than the ones that she is allergic to which includes Bactrim and Levaquin. ASSESSMENT: 1. Multidrug resistant urinary tract infection secondary to Morganella morganii and sensitive to Zosyn and gentamicin with the patient having allergy to levofloxacin and sulfa antibiotics. 2. Endstage dementia, currently on hospice care under [facility]. 3. Acute kidney injury, likely due to prerenal azotemia from dehydration. 4. Type 2 diabetes mellitus. 5. Hypertension. 6. Anxiety disorder. 7. History of chronic ischemic heart disease. 8. Hyperlipidemia. 9. History of chronic sinusitis. 10. Chronic gastroesophageal reflux disease without mention of esophagitis. 11. Irritable bowel syndrome. PLAN: Will continue with Gentamicin and follow her levels closely with anticipation on being discharged with anywhere from every 24 to 48 hours IM dosing. Will continue with Gentamicin per Pharmacy protocol. Will follow her levels, the Gentamicin serum levels. Hopefully will be able to discharge the patient in the next 24 to 48 hours. Until then, continue to monitor and treat as needed. #[id number] [facility]
[2018-10-28] MEDS ORDERED: ENOXAPARIN SODIUM 40 MG/0.4 ML SYG SUBCU SCH (23:00)
[2018-10-29] MEDS: KCL 20MEQ/0.45% NS 1,000 ML IVS PRN ×2 (01:55→19:00)
[2018-10-29] MEDS: INSULIN LISPRO 100 UNITS/ML PEN SUBCU SCH ×4 (07:09→21:17)
[2018-10-29] MEDS: MEGESTROL ACETATE SUSP 400 MG/10 ML UD PO SCH (09:12)
[2018-10-29] MEDS: LOSARTAN POTASSIUM 25 MG TAB PO SCH (09:12)
[2018-10-29] MEDS: DIGOXIN 0.125 MG TAB PO SCH (09:12)
[2018-10-29] MEDS: busPIRone HCL 5 MG TAB PO SCH ×2 (09:12→20:16)
[2018-10-29] MEDS: HYDROcodone 10MG/APAP 325MG 1 EA TAB PO SCH ×2 (09:13→20:17)
[2018-10-29] MEDS: DICYCLOMINE HCL 20 MG TAB PO SCH ×3 (09:13→17:19)
[2018-10-29] MEDS: metFORMIN XR 500 MG TAB.ER.24 PO SCH ×2 (09:13→20:17)
[2018-10-29] MEDS: LORazepam 1 MG TAB PO SCH ×3 (09:14→20:17)
[2018-10-29] MEDS: METOPROLOL SUCCINATE XL 25 MG TAB PO SCH (09:14)
[2018-10-29] MEDS ORDERED: GENTAMICIN SULFATE IVPB SCH (10:00)
[2018-10-29] MEDS ORDERED: SODIUM CHLORIDE 0.9% IVPB SCH (10:00)
[2018-10-29] MEDS ORDERED: GENTAMICIN SULFATE INJ 80 MG/2 ML VIAL ONE (10:40)
[2018-10-29] MEDS ORDERED: SODIUM CHLORIDE 0.9% 100ML 100 ML IVPB ONE (10:41)
--- NOTE | 2018-10-29 14:06 | PN ---
SUPERVISING PHYSICIAN: Ben Sierra MD DATE: 10/29/18 SUBJECTIVE: The patient is lying in bed. She is asleep. She awakens easily, but she mumbles a few words. She is mostly noncommunicative. Nursing reports that have been no issues overnight. OBJECTIVE: VITAL SIGNS: Temperature 98. Heart rate 81. Blood pressure 147/84. Respiratory rate 20. O2 saturation 96% on room air. RESPIRATORY: Essentially clear to auscultation bilaterally, slightly diminished throughout. CARDIAC: Regular rate and rhythm. GASTROINTESTINAL: Abdomen is soft, nondistended. Bowel sounds are positive. NEUROLOGIC: Awake, but somewhat lethargic. She does not answer any questioning. LABORATORY: Blood sugars have run between 85 and 123. Sodium 140, potassium 4.6, chloride 113, carbon dioxide 17, BUN 17, creatinine 1.08, calcium 9. All other labs and films have been reviewed via the EMR. ASSESSMENT: 1. Multidrug resistant urinary tract infection secondary to Morganella morganii and sensitive to Zosyn and gentamicin with the patient having allergy to levofloxacin and sulfa antibiotics. 2. Endstage dementia, currently on hospice care under [facility]. 3. Acute kidney injury, likely due to prerenal azotemia from dehydration. 4. Type 2 diabetes mellitus. 5. Hypertension. 6. Anxiety disorder. 7. History of chronic ischemic heart disease. 8. Hyperlipidemia. 9. History of chronic sinusitis. 10. Chronic gastroesophageal reflux disease without mention of esophagitis. 11. Irritable bowel syndrome. PLAN: We will continue present supportive care. She will continue with her IV gentamicin and Pharmacy will monitor her gentamicin levels. I will repeat a urinalysis in the morning. If the urinalysis is clear, we will discharge her to [facility] and send her on some IM gentamicin at the recommendations from Pharmacy. Otherwise, continue to monitor the patient closely and follow as needed. Hopefully we can have discharge tomorrow or the next day. #[id number] [facility]
[2018-10-29] MEDS: ATORVASTATIN 20 MG TAB PO SCH (20:16)
[2018-10-29] MEDS: MONTELUKAST 10 MG TAB PO SCH (20:17)
[2018-10-29] MEDS: ENOXAPARIN SODIUM 30 MG/0.3 ML SYG SUBCU SCH (20:17)
[2018-10-29] MEDS: IV SET AND CAP CHANGE INJ INJ SCH (22:33)
[2018-10-30] MEDS: INSULIN LISPRO 100 UNITS/ML PEN SUBCU SCH (07:13)
[2018-10-30] MEDS: HYDROcodone 10MG/APAP 325MG 1 EA TAB PO SCH (09:32)
[2018-10-30] MEDS: METOPROLOL SUCCINATE XL 25 MG TAB PO SCH (09:32)
[2018-10-30] MEDS: LOSARTAN POTASSIUM 25 MG TAB PO SCH (09:32)
[2018-10-30] MEDS: MEGESTROL ACETATE SUSP 400 MG/10 ML UD PO SCH (09:32)
[2018-10-30] MEDS: DICYCLOMINE HCL 20 MG TAB PO SCH (09:32)
[2018-10-30] MEDS: busPIRone HCL 5 MG TAB PO SCH (09:33)
[2018-10-30] MEDS: metFORMIN XR 500 MG TAB.ER.24 PO SCH (09:33)
[2018-10-30] MEDS: LORazepam 1 MG TAB PO SCH (09:33)
[2018-10-30 10:30] VITALS: BP 148/76; TEMP 97.6; O2SAT 94
--- NOTE | 2018-10-30 10:44 | DS ---
SUPERVISING PHYSICIAN: Ben Sierra MD DISCHARGE DIAGNOSIS: 1. Multidrug resistant urinary tract infection secondary to Morganella morganii and sensitive to Zosyn and gentamicin with the patient having allergy to levofloxacin and sulfa antibiotics. 2. Endstage dementia, currently on hospice care under [facility]. 3. Acute kidney injury, likely due to prerenal azotemia from dehydration. 4. Type 2 diabetes mellitus. 5. Hypertension. 6. Anxiety disorder. 7. History of chronic ischemic heart disease. 8. Hyperlipidemia. 9. History of chronic sinusitis. 10. Chronic gastroesophageal reflux disease without mention of esophagitis. 11. Irritable bowel syndrome. HISTORY OF PRESENT ILLNESS: This is an 83-year-old female patient who is on [facility] hospice care for endstage dementia. Her primary care physician, Dr. Romeo Hall, has been treating her for a multi-drug resistant urinary tract infection that has not improved. Recent urine culture and sensitivity grew out Morganella morganii. It is resistant to all but three medications and the patient has an allergy to Levaquin and Bactrim. Gentamicin is the only one that showed sensitivity that she is not allergic to. She was brought to the Emergency Department for further treatment of her urinary tract infection. She received gentamicin antibiotic treatment. According to the family and the prison, she has been more confused lately since the urinary tract infection, but she does have endstage dementia. Her initial laboratory studies showed CBC basically within normal limits with the exception that her hemoglobin and hematocrit were slightly low at 11.8 and 35.7. Her chemistry showed her electrolytes were basically within normal limits, but her BUN was 48 and creatinine 1.98. Her baseline creatinine looks to be about 1. Her liver panel was unremarkable. She was given some fluids as well as started on the gentamicin. She was admitted to the hospital for further treatment. Her [facility] hospital care was rescinded. HOSPITAL COURSE: The gentamicin was continued and it was followed by Pharmacy. She was also given some gentle IV fluids to correct renal dysfunction. She was also on DVT prophylaxis as well as ulcer prophylaxis. Her kidney function was monitored over the next few days and her gentamicin was increased to every 48 hours. Her dehydration improved as well as her kidney function. I spoke with Pharmacy this morning to have a plan to go back to [facility] on IM gentamicin and she will be discharged back to [facility] today in stable condition. LABORATORY: Her CBC was basically unremarkable. Her electrolytes remained mostly normal over the course of her stay. BUN improved from 48 to 17 and creatinine started at 1.98 and today is 1.08. Glucose was stable between 93 and 163. Calcium was normal at 9.9. RADIOLOGY: There are no radiology reports at this time. DISCHARGE PLAN: The patient will be discharged to [facility] in stable condition. She is to resume her previous diet and her previous activity. She is to followup with Dr. Romeo Hall in one to two weeks. She is a DNR and the prison is to call [facility] to reinstate her hospice admission. I discussed her antibiotic therapy with Pharmacy and given her random vancomycin level and her kidney function, she is to have gentamicin sulfate injection 80 mg IM daily x3 doses, the first dose after discharge should start on 10/31/18 at 12 o'clock noon. She is to call [facility], Dr. Hall or return to the hospital for any problems or complications. DISCHARGE MEDICATIONS: 1. Potassium. 2. Singulair. 3. Metoprolol. 4. Metformin. 5. Losartan. 6. Furosemide. 7. Dicyclomine. 8. Cranberry capsules. 9. Benzonatate. 10. Atorvastatin. 11. Ascorbic acid 12. Digoxin. 13. Ibuprofen. 14. Milk of Magnesia. 15. Promethazine. 16. Megestrol. 17. Lorazepam. 18. Hydrocodone. 19. Buspirone. 20. Guaifenesin. 21. Famotidine. 22. Aspirin. 23. Sodium chloride tab. 24. Arginate. 25. Gentamicin sulfate. #[id number] [facility]
== END 2018-10-30 10:55 | disposition hospice, inpatient (51) | DRG 683 ==
LOC: ER 17:24 → MS 21:27 → OBSVTOIN 21:27
PROVIDERS: ADMIT Nurse Practitioner Family; ATTEND Nurse Practitioner Acute Care
DX: N17.9 Acute kidney failure, unspecified (principal); N39.0 Urinary tract infection, site not specified; F03.90 Unspecified dementia, unspecified severity, without behavioral disturbance, psychotic disturbance, mood disturbance, and anxiety; E86.0 Dehydration; E11.9 Type 2 diabetes mellitus without complications; I10 Essential (primary) hypertension; F41.9 Anxiety disorder, unspecified; E78.5 Hyperlipidemia, unspecified; K21.9 Gastro-esophageal reflux disease without esophagitis; K58.9 Irritable bowel syndrome, unspecified; B96.89 Other specified bacterial agents as the cause of diseases classified elsewhere; I25.9 Chronic ischemic heart disease, unspecified; G47.00 Insomnia, unspecified; Z86.14 Personal history of Methicillin resistant Staphylococcus aureus infection; Z16.24 Resistance to multiple antibiotics; Z66 Do not resuscitate; Z96.652 Presence of left artificial knee joint; Z89.512 Acquired absence of left leg below knee; Z88.1 Allergy status to other antibiotic agents; Z88.2 Allergy status to sulfonamides; Z79.1 Long term (current) use of non-steroidal anti-inflammatories (NSAID); Z79.84 Long term (current) use of oral hypoglycemic drugs; Z79.899 Other long term (current) drug therapy